=== PATIENT | male | born 1940 | race Caucasian/White ===

== ENCOUNTER 2016-08-16 16:36 | Inpatient (IN) | payer MEDICARE ==
[~2016-08-16] VITALS: Ht 177.8 cm; Wt 120.2 kg
[2016-08-20 06:48] LABS: CREATININE 1.1 mg/dL (0.7-1.2); POTASSIUM 4.2 mmol/L (3.5-5.1)
[2016-08-24] MEDS ORDERED: PERCOCET 7.5/321 TAB PO (13:22)
[2016-08-24] MEDS ORDERED: XARELTO10 MG PO (13:22)
[2016-08-24] MEDS ORDERED: FLEET ENEMA133 ML PR (13:23)
[2016-08-24] MEDS ORDERED: LOPRESSOR25 MG PO (13:24)
[2016-08-24] MEDS ORDERED: PRAVACHOL80 MG PO (13:24)
[2016-08-24] MEDS ORDERED: SYNTHROID100 MCG PO (13:24)
[2016-08-24] MEDS ORDERED: ACCUPRIL40 MG PO (13:24)
[2016-08-24] MEDS ORDERED: OMEPRAZOLE40 MG PO (13:24)
[2016-08-24] MEDS ORDERED: LOVAZA1 GM PO (13:25)
[2016-08-24] MEDS ORDERED: ASPIRIN CHEWABL81 MG PO (13:25)
[2016-08-24] MEDS ORDERED: CINNAMON500 MG PO (13:25)
[2016-08-24] MEDS ORDERED: ADALAT CC60 MG PO (13:25)
--- NOTE | 2016-08-26 10:28 | NUR ---
PT. D/C HOME ON 08/24/16 WITH SPOUSE. PT. HAS A ROLLING WALKER. PT. REQUESTED OUTPT. THERAPY AT [facility]. FIRST APPT. IS 08/26/16 @ 10:00 A.M. D/C NOTICE AND QUESTIONNAIRE GIVEN.
== END 2016-08-24 13:36 | disposition home or self-care (01) | DRG 561 ==
LOC: FSNU 16:36
PROVIDERS: Nurse Practitioner Adult Health; ADMIT Internal Medicine
DX: Z47.1 Aftercare following joint replacement surgery (principal); I11.0 Hypertensive heart disease with heart failure; Z96.642 Presence of left artificial hip joint; E78.5 Hyperlipidemia, unspecified; E03.9 Hypothyroidism, unspecified; K21.9 Gastro-esophageal reflux disease without esophagitis; N18.9 Chronic kidney disease, unspecified
CPT/HCPCS: 36415; 80048; 97110; 97116; 97161; 97165; 97530-GP; 97535